=== PATIENT | male | born 1945 | race Caucasian/White ===

== ENCOUNTER → 2018-10-15 | Outpatient (CLI) | payer MEDICARE ==
--- NOTE | 2018-10-15 11:16 | US ---
EXAMINATION TYPE: US duplex aorta DATE OF EXAM: 10/15/2018 COMPARISON: CT 2011 CLINICAL HISTORY: Z13.6 Screening cardiovascular disorder. Screening, pt has no complaints at this t jordan EXAM MEASUREMENTS: Abdominal Aorta: Proximal: 1.9 x 2.3 cm Mid: 1.8 x 1.8 cm Distal: 1.6 x 1.6 cm Bifurcation: LEONILA: 1.1 x 1.1 cm RUBY: 1.3 x 1.1 cm No evidence of AAA IMPRESSION: No sonographic evidence of abdominal aortic aneurysm in the visualized portions of the ab dominal aorta.
== END | disposition home or self-care (01) ==
LOC: RADUSWWP 09:43
PROVIDERS: ATTEND Family Medicine
DX: Z13.6 Encounter for screening for cardiovascular disorders (principal)
CPT/HCPCS: 93979

== ENCOUNTER → 2022-05-17 | Outpatient (CLI) | payer MEDICARE ==
--- NOTE | 2022-05-18 04:51 | MR ---
EXAMINATION TYPE: MR shoulder RT wo con DATE OF EXAM: 05/17/2022 COMPARISON: None. HISTORY: Right shoulder pain and limited range of motion. History of surgery. TECHNIQUE: Multiplanar, multisequence imaging of the right shoulder is performed without contrast. FINDINGS: Rotator Cuff: Increased signal in the supraspinatus and infraspinatus tendons with surrounding fluid. Rotator cuff muscle bulk is maintained. Acromioclavicular Joint: Moderate to severe narrowing and moderate capsular hypertrophy. Mild to mode rate spurring. Glenohumeral Joint: Small to moderate size joint effusion. Moderate narrowing. There is spur from the inferior medial humeral head coronal image 15. Labrum: The superior labrum is blunted suggesting tear. Biceps Tendon: The long head of biceps is not well identified in normal location. Labral anchor not s een suspected torn Bone marrow signal: There is linear artifact in the superior anterior femoral head presumably from pr ior rotator cuff tear. Subchondral cystic change at the acromioclavicular joint. Other: No additional significant abnormality is appreciated. IMPRESSION: 1. Evidence of prior rotator cuff surgery. There is tendinosis and partial tearing of the surgically repaired supraspinatus and infraspinatus tendons. 2. Long head of biceps labral anchor not well visualized, tear is strongly suspected. 3. Degenerative changes as detailed above.
== END | disposition home or self-care (01) ==
LOC: RADMRIMAIN 08:45
PROVIDERS: ATTEND Family Medicine
DX: M75.111 Incomplete rotator cuff tear or rupture of right shoulder, not specified as traumatic (principal); M19.011 Primary osteoarthritis, right shoulder; M24.811 Other specific joint derangements of right shoulder, not elsewhere classified

== ENCOUNTER → 2024-05-15 | Outpatient (CLI) | payer MEDICARE ==
[2024-05-15 12:17] LABS: African American GFR (CKD) 82 (>60 ml/min/1.73 sqM); Blood Urea Nitrogen 21 mg/dL (9-20); Non-African American GFR(CKD) 71 (>60 ml/min/1.73 sqM)
--- NOTE | 2024-05-15 13:34 | CT ---
EXAMINATION TYPE: CT abdomen pelvis w con CT DLP: 544.8 mGycm, Automated exposure control for dose reduction was used. DATE OF EXAM: 05/15/2024 1:12 PM COMPARISON: Ultrasound duplex aorta 10/15/2018, CT abdomen 11/14/2011 CLINICAL INDICATION:Male, 79 years old with history of R31.29 OTHER MICROSCOPIC HEMATURIA; MICRO ROSA TURIA TECHNIQUE: Standard CT of the abdomen and pelvis following the administration of 100 cc of Isovue 3 00 IV contrast material and oral contrast. Coronal and sagittal reformats were performed. FINDINGS: LOWER CHEST: Unremarkable ABDOMEN LIVER: Right hepatic lobe 1.4 cm cyst. GALLBLADDER AND BILE DUCTS: Unremarkable. PANCREAS: Unremarkable. SPLEEN: Unremarkable. ADRENAL GLANDS: Unremarkable. KIDNEYS AND URETERS: No evidence of hydronephrosis or renal calculus. The kidneys enhance symmetrical ly without suspicious focal lesion. PELVIS BLADDER: Left anterior lateral urinary bladder wall broad-based thickening measuring up to 9 mm (seri es 3, 76). There is some mild surrounding fat stranding at this region. REPRODUCTIVE: Prostate is prominent in size measuring 4.9 cm in transverse dimension. ABDOMEN & PELVIS STOMACH AND BOWEL: Small hiatal hernia, duodenum is unremarkable. Distal colonic diverticulosis witho ut evidence for acute diverticulitis. Enteric contrast reaches the ascending colon. No focal bowel wa ll thickening or surrounding inflammatory changes. No evidence of bowel obstruction. PERITONEUM: No evidence of pneumoperitoneum or free fluid. VASCULATURE: Mild atherosclerotic calcifications are present throughout the abdominal aorta and its b ranches. No evidence of aortic aneurysm. MUSCULOSKELETAL: No acute osseous abnormalities. Multilevel degenerative disc disease of the visualiz ed spine. No aggressive osseous lesion. LYMPH NODES: No evidence for lymphadenopathy. SOFT TISSUE/ABDOMINAL WALL: Small fat filled left inguinal hernia. IMPRESSION: 1. Eccentric anterior lateral urinary bladder wall thickening with some surrounding fat stranding. F indings may relate to cystitis however underlying neoplasm is not excluded. Correlation with urinalys is and consideration for direct visualization is recommended. 2. Colonic diverticulosis without evidence for acute diverticulitis. [facility], , 05/15/2024 1:31 PM
== END | disposition home or self-care (01) ==
LOC: RADCTMAIN 11:07
PROVIDERS: ATTEND Family Medicine
DX: K57.30 Diverticulosis of large intestine without perforation or abscess without bleeding (principal); R31.29 Other microscopic hematuria; K40.90 Unilateral inguinal hernia, without obstruction or gangrene, not specified as recurrent; I70.0 Atherosclerosis of aorta
CPT/HCPCS: 82565; 84520; 74177; 36415; Q9967

== ENCOUNTER 2024-12-17 15:22 | Observation (INO) | payer MEDICARE ==
--- NOTE | 2024-12-17 15:48 | ED ---
Chest Pain HPI - General Chief Complaint: Chest Pain Stated Complaint: Chest pain Time Seen by Provider: 12/17/24 15:33 Source: patient, RN notes reviewed, old records reviewed Mode of arrival: ambulatory Limitations: no limitations - History of Present Illness Initial Comments: This is a 79-year-old male presenting with occasional chest pain chest pain and dyspnea. Exertional dyspnea going on now for a few days. Pending standing but she did have some inhalation issues and then since that is a difficulty breathing especially with exertion. He does have history of heart disease with positive stent no history of asthma or COPD MD Complaint: chest pain -: days(s) Onset: during rest, during exertion Pain Location: substernal, left chest Pain Radiation: back Severity: moderate Severity scale (1-10): 4 Quality: tightness Consistency: intermittent Improves With: nothing Worsens With: exertion Anginal Symptoms: dyspnea, sense of impending doom Other Symptoms: palpitations Treatments Prior to Arrival: none - Related Data Home Medications Medication Instructions Recorded Confirmed Aspirin EC [Ecotrin Low Dose] 81 mg PO DAILY 12/17/24 12/17/24 Celecoxib [CeleBREX] 200 mg PO BID 12/17/24 12/17/24 Co Q-10(Unknown Dose) 1 tab PO DAILY 12/17/24 12/17/24 Fish Oil(Unknown Dose) 1 cap PO DAILY 12/17/24 12/17/24 Glucosamine/Chondr Flynn A Sod [Osteo 1 tab PO DAILY 12/17/24 12/17/24 Bi-Flex Caplet] Levocetirizine Dihydrochloride 5 mg PO DAILY 12/17/24 12/17/24 [Xyzal] Multivit/Iron Sulf/Folic Acid 1 tab PO DAILY 12/17/24 12/17/24 [Multivitamin with Iron] Rosuvastatin [Crestor] 20 mg PO DAILY 12/17/24 12/17/24 Saw/Vit E/Sod Raisa/Lyc/Beta/Pyg 1 tab PO DAILY 12/17/24 12/17/24 [Prostate Health Caplet] Tamsulosin [Flomax] 0.4 mg PO HS 12/17/24 12/17/24 Vitamin D3 50mcg-K1 500mcg-Mk4 1 cap PO DAILY 12/17/24 12/17/24 1500mcg-Mk7 180mcg Capsule tiZANidine [Zanaflex] 4 mg PO HS 12/17/24 12/17/24 Allergies Allergy/AdvReac Type Severity Reaction Status Date / Time No Known Allergies Allergy Verified 12/17/24 20:36 Review of Systems ROS Statement: Those systems with pertinent positive or pertinent negative responses have been documented in the HPI. ROS Other: All systems not noted in ROS Statement are negative. EKG Findings - EKG Comments: EKG Findings:: EKG is Sinus 64 MI 173 QRS 101 QTc 447 - EKG Results: EKG: interpreted by REBECCA Past Medical History Past Medical History: No Reported History History of Any Multi-Drug Resistant Organisms: None Reported Additional Past Surgical History / Comment(s): cardiac stent Past Psychological History: No Psychological Hx Reported Smoking Status: Never smoker Past Alcohol Use History: Rare Past Drug Use History: None Reported General Exam Limitations: no limitations General appearance: alert, in no apparent distress Head exam: Present: atraumatic, normocephalic, normal inspection Eye exam: Present: normal appearance, PERRL, EOMI. Absent: scleral icterus, conjunctival injection, periorbital swelling ENT exam: Present: normal exam, mucous membranes moist Neck exam: Present: normal inspection. Absent: tenderness, meningismus, lymphadenopathy Respiratory exam: Present: normal lung sounds bilaterally. Absent: respiratory distress, wheezes, rales, rhonchi, stridor Cardiovascular Exam: Present: regular rate, normal rhythm, normal heart sounds. Absent: systolic murmur, diastolic murmur, rubs, gallop, clicks GI/Abdominal exam: Present: soft, normal bowel sounds. Absent: distended, tenderness, guarding, rebound, rigid Extremities exam: Present: normal inspection, full ROM, normal capillary refill. Absent: tenderness, pedal edema, joint swelling, calf tenderness Back exam: Present: normal inspection Neurological exam: Present: alert, oriented X3, CN II-XII intact Psychiatric exam: Present: normal affect, normal mood Skin exam: Present: warm, dry, intact, normal color. Absent: rash Course Vital Signs 12/17/24 12/17/24 12/17/24 15:24 16:00 17:00 Temperature 98.0 F Pulse Rate 70 63 52 L Respiratory 15 20 19 Rate Blood Pressure 166/78 146/91 149/83 O2 Sat by Pulse 99 98 97 Oximetry 12/17/24 12/17/2412/17/25 17:34 17:43 18:00 Temperature Pulse Rate 54 L 58 L 60 Respiratory 17 Rate Blood Pressure 145/78 O2 Sat by Pulse 97 Oximetry 12/17/24 12/17/24 12/18/24 19:58 21:52 00:02 Temperature Pulse Rate 67 75 73 Respiratory 18 16 18 Rate Blood Pressure 166/90 156/99 156/84 O2 Sat by Pulse 95 95 95 Oximetry - Reevaluation(s) Reevaluation #1: 12/17/24 16:24 Medical records reviewed Reevaluation #2: Patient still with chest pain and palpitations here in the ER Reevaluation #3: Patient formed results questions answered Reevaluation #4: Was pt. sent in by a medical professional or institution (RAQUEL Sheridan, PHYTOPATHOLOGIST, urgent care, hospital, or fpc...) When possible be specific @ -no Did you speak to anyone other than the patient for history (EMS, parent, family, police, friend...)? What history was obtained from this source @ -no Did you review nursing and triage notes (agree or disagree)? Why? @ -agree Are old charts reviewed (outside hosp., previous admission, EMS record, old EKG, old radiological studies, urgent care reports/EKG's, fpc records)? Report findings @ -yes Differential Diagnosis (chest pain, altered mental status, abdominal pain women, abdominal pain men, vaginal bleeding, weakness, fever, dyspnea, syncope, headache, dizziness, GI bleed, back pain, seizure, CVA, palpatations, mental health, musculoskeletal)? @ -prior EKG interpreted by me (3pts min.). @ -yes X-rays interpreted by me (1pt min.). @ -yes negative for acute disease CT interpreted by me (1pt min.). @ -no U/S interpreted by me (1pt. min.). @ -no What testing was considered but not performed or refused? (CT, X-rays, U/S, labs)? Why? @ -none What meds were considered but not given or refused? Why? @ -none Did you discuss the management of the patient with other professionals (professionals i.e. RAQUEL Sheridan, PHYTOPATHOLOGIST, lab, RT, psych nurse, oncology social work, traffic warehouse supervisor, teacher, administrative services officer, case making machine operator)? Give summary @ -no Was smoking cessation discussed for >3mins.? @ -no Was critical care preformed (if so, how long)? @ -no Were there social determinants of health that impacted care today? How? (Homelessness, low income, unemployed, alcoholism, drug addiction, transportation, low edu. Level, literacy, decrease access to med. care, fci, rehab)? @ -none Was there de-escalation of care discussed even if they declined (Discuss DNR or withdrawal of care, Hospice)? DNR status @ -no What co-morbidities impacted this encounter? (DM, HTN, Smoking, COPD, CAD, Cancer, CVA, ARF, Chemo, Hep., AIDS, mental health diagnosis, sleep apnea, morbid obesity)? @ -none Was patient admitted / discharged? Hospital course, mention meds given and route, prescriptions, significant lab abnormalities, going to OR and other pertinent info. @ - 79 male presenting with chest pain and palpitations patient to be admitted for cardiac observation. Admitted Undiagnosed new problem with uncertain prognosis? @ -no Drug Therapy requiring intensive monitoring for toxicity (Heparin, Nitro, Insulin, Cardizem)? @ -no Were any procedures done? @ -no Diagnosis/symptom? @ -Chest pain or palpitations Acute, or Chronic, or Acute on Chronic? @ -Acute Uncomplicated (without systemic symptoms) or Complicated (systemic symptoms)? @ -Complicated Side effects of treatment? @ -no Exacerbation, Progression, or Severe Exacerbation? @ -exacerbation Poses a threat to life or bodily function? How? (Chest pain, [place], [place], pneumonia, PE, COPD, DKA, ARF, appy, cholecystitis, CVA, Diverticulitis, Homicidal, Suicidal, threat to staff... and all critical care pts) @ -yes with chest pain Reevaluation #5: Differential Dyspnea: Coronary syndrome, arrhythmia, tamponade, asthma, COPD, pulmonary embolism, pneumonia, pneumothorax, pulmonary effusion, anaphylaxis, diabetic ketoacidosis, flailed chest, pulmonary contusion, diaphragmatic rupture, anemia, neuromuscular, this is not meant to be an all-inclusive list. Differential Chest Pain: Stable Angina, Unstable Angina, STEMI, NSTEMI Aortic Dissection, Pneumothorax, Musculoskeletal, Esophageal Spasm GERD, Cholecystitis, Pancreatitis, Zoster, this is not meant to be an all-inclusive list. - Consultations Consultation #1: Spoke with admitting physicians agreed to admit this patient Chest Pain MDM - MDM 79 male presenting with chest pain and palpitations patient to be admitted for cardiac observation. Critical Care Time Critical Care Time: Yes Total Critical Care Time: 31 Disposition Clinical Impression: Chest pain, Palpitations Disposition: ADMITTED IP TO THIS HOSP Condition: Fair Is patient prescribed a controlled substance at d/c from ED?: No Time of Disposition: 19:00
[2024-12-17 15:50] LABS: Basophils # (A) 0.05 10*3/uL (0.00-0.10); Basophils % (A) 0.7 %; Eosinophils # (A) 0.25 10*3/uL (0.04-0.35); Eosinophils % (A) 3.6 %; HCT 42.0 % (39.6-50.0); HGB 14.6 g/dL (13.0-17.0); Lymphocytes # (A) 1.17 10*3/uL (0.90-5.00); Lymphocytes % (A) 16.7 %; MCH 33.0 pg (27.0-32.0); MCHC 34.8 g/dL (32.0-37.0); MCV 94.8 fL (80.0-97.0); Monocytes # (A) 0.57 10*3/uL (0.20-1.00); Monocytes % (A) 8.2 %; Neutrophils # (A) 4.90 10*3/uL (1.80-7.70); Neutrophils % (A) 70.1 %; Platelet Count 150 10*3/uL (140-440); RBC 4.43 10*6/uL (4.40-5.60); RDW 12.4 % (11.5-14.5); WBC 6.99 10*3/uL (4.50-10.00)
[2024-12-17 16:08] LABS: INR 0.9 (<1.2); Partial Thromboplastin Time 23.0 sec (22.0-30.0); Prothrombin Time 10.3 sec (10.0-12.5)
[2024-12-17 16:10] LABS: ALT 31 U/L (4-49); AST 40 U/L (17-59); African American GFR (CKD) >90 (>60 ml/min/1.73 sqM); Albumin 4.1 g/dL (3.5-5.0); Alkaline Phosphatase 84 U/L (38-126); Anion Gap 9 mmol/L; Blood Urea Nitrogen 17 mg/dL (9-20); Calcium 9.2 mg/dL (8.4-10.2); Carbon Dioxide 23 mmol/L (22-30); Chloride 108 mmol/L (98-107); Glucose 107 mg/dL (74-99); Lipase 72 U/L (23-300); Magnesium 2.5 mg/dL (1.6-2.3); Non-African American GFR(CKD) 82 (>60 ml/min/1.73 sqM); Potassium 4.4 mmol/L (3.5-5.1); Sodium 140 mmol/L (137-145); Total Protein 6.5 g/dL (6.3-8.2)
--- NOTE | 2024-12-17 16:12 | XR ---
EXAMINATION TYPE: XR chest 2V DATE OF EXAM: 12/17/2024 3:54 PM COMPARISON: None. CLINICAL INDICATION: Male, 79 years old with history of Chest Pain, TECHNIQUE: XR chest 2V view(s) obtained. FINDINGS: The heart size is normal. The pulmonary vasculature is normal. The lungs are clear. IMPRESSION: 1. No acute pulmonary process. [facility], Workstation: [facility], 12/17/2024 4:09 PM
[2024-12-17 16:20] LABS: NT-Pro-B-Type Natriuretic Pept 147 pg/mL
[2024-12-17] MEDS: DEXAMETHASONE SOD PHOSPHATE 10 MG/ML 1 ML VIAL IVP STA (17:14)
[2024-12-17] MEDS: IPRATROPIUM-ALBUTEROL 3 ML NEB INHALATION STA (17:34)
[2024-12-17] MEDS ORDERED: MORPHINE SULFATE 4 MG/ML SYRINGE IV PRN (18:58)
[2024-12-17] MEDS ORDERED: NALOXONE 0.4 MG/ML 1 ML VIAL IV PRN (18:58)
[2024-12-17] MEDS ORDERED: ONDANSETRON 4 MG/2 ML VIAL IVP PRN (18:58)
[2024-12-17] MEDS: SODIUM CHLORIDE 0.9% 1,000 ML IV SCH (19:55)
[2024-12-18 00:33] VITALS: RESP 16
[2024-12-18 06:38] LABS: Basophils # (A) 0.02 10*3/uL (0.00-0.10); Basophils % (A) 0.2 %; Eosinophils # (A) 0.00 10*3/uL (0.04-0.35); Eosinophils % (A) 0.0 %; HCT 43.7 % (39.6-50.0); HGB 14.4 g/dL (13.0-17.0); Lymphocytes # (A) 0.59 10*3/uL (0.90-5.00); Lymphocytes % (A) 5.2 %; MCH 31.9 pg (27.0-32.0); MCHC 33.0 g/dL (32.0-37.0); MCV 96.7 fL (80.0-97.0); Monocytes # (A) 0.24 10*3/uL (0.20-1.00); Monocytes % (A) 2.1 %; Neutrophils # (A) 10.44 10*3/uL (1.80-7.70); Neutrophils % (A) 91.8 %; Platelet Count 173 10*3/uL (140-440); RBC 4.52 10*6/uL (4.40-5.60); RDW 12.3 % (11.5-14.5); WBC 11.37 10*3/uL (4.50-10.00)
[2024-12-18 06:56] LABS: ALT 27 U/L (4-49); AST 33 U/L (17-59); African American GFR (CKD) >90 (>60 ml/min/1.73 sqM); Albumin 3.9 g/dL (3.5-5.0); Alkaline Phosphatase 63 U/L (38-126); Anion Gap 9 mmol/L; Blood Urea Nitrogen 17 mg/dL (9-20); Calcium 9.1 mg/dL (8.4-10.2); Carbon Dioxide 21 mmol/L (22-30); Chloride 110 mmol/L (98-107); Glucose 201 mg/dL (74-99); Magnesium 2.3 mg/dL (1.6-2.3); Non-African American GFR(CKD) 84 (>60 ml/min/1.73 sqM); Potassium 4.4 mmol/L (3.5-5.1); Sodium 140 mmol/L (137-145); Total Protein 6.2 g/dL (6.3-8.2)
--- NOTE | 2024-12-18 09:52 | P.CRDCN ---
History of Present Illness Consult date: 12/18/24 Consult reason: chest pain History of present illness: This is a 79-year-old male with past medical history of coronary artery disease with previous stent in 2003, hyperlipidemia. 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 He denies history of hypertension. No history of diabetes, stroke or cancers. We have been asked to evaluate the patient for chest pain. Patient presented to the emergency center due to chest pain and exertional dyspnea. He states his symptoms have been going on for the past 3 days. He states he has dyspnea on exertion and is hard to catch his breath when he stops to sit down. He also feels that his heart is pounding. He states he has had episodes similar to this in the past but not recently. For the past 3 days he has been doing yard work when he has the symptoms. He denies any chest pain at this time. Blood pressure 154/80, heart rate 70, pulse ox 97% on room air. Patient is status post nebulizer treatment and Decadron IV. Patient denies history of tobacco use. He states he drinks alcohol rarely. -EKG: Sinus rhythm with no acute ST-T wave changes. -Chest x-ray: No acute process. -Laboratory studies: WBC 6.9, hemoglobin 14.6, BUN 17, creatinine 0.83, potassium 4.4. Troponin negative x 4. -Home cardiac medications: Aspirin 81 mg daily, rosuvastatin 20 mg daily, also o n co-Q10 and fish oil. Review Of Systems: At the time of my exam: CONSTITUTIONAL: Denies fever or chills. HEENT: Denies blurred vision, vision changes, or eye pain. Denies hemoptysis CARDIOVASCULAR: Denies chest pain. Denies orthopnea. Denies PND. Denies palpitations RESPIRATORY: Denies shortness of breath. GASTROINTESTINAL: Denies abdominal pain. Denies nausea or vomiting. HEMATOLOGIC: Denies bleeding disorders. GENITOURINARY: Denies any blood in urine. SKIN: Denies puritis. Denies rash. Physical examination: Gen: This is 79-year-old male in no acute distress. VS: reviewed HEENT: Head is atraumatic, normocephalic. Pupils equal, round. Sclerae is anicteric. NECK: Supple. No JVD. LUNGS: Clear to auscultation. No wheezes or rhonchi. No intercostal retractions. HEART: Regular rate and rhythm. No murmur. ABDOMEN: Soft No tenderness. EXTREMITIES: No pedal edema. No calf tenderness. NEUROLOGICAL: Patient is awake, alert and oriented x3. Assessment: Atypical chest pain, acute coronary syndrome ruled out Hypertension Hyperlipidemia History of coronary artery disease with previous stent, details unknown Plan: Resume patient's home cardiac medications Obtain Cardiolite stress test today N.p.o. until stress test is completed Obtain 2-D echocardiogram and Doppler study to assess cardiac structure and function If echocardiogram and stress test are unremarkable, patient is cleared from cardiology for discharge and may follow-up in the office with Dr. Verdugo in 1 week. Thank you kindly for this consultation. Nurse practitioner note has been reviewed, I agree with documented findings and plan of care. Patient was seen and examined. Past Medical History Past Medical History: No Reported History, Hyperlipidemia, Prostate Disorder History of Any Multi-Drug Resistant Organisms: None Reported Past Surgical History: Bladder Surgery, Heart Catheterization With Stent Additional Past Surgical History / Comment(s): cardiac stent Date of Last Stent Placement:: 2003 Past Psychological History: No Psychological Hx Reported Smoking Status: Former smoker Past Alcohol Use History: Rare Past Drug Use History: None Reported Medications and Allergies Home Medications Medication Instructions Recorded Confirmed Type Aspirin EC [Ecotrin Low Dose] 81 mg PO DAILY 12/17/24 12/17/24 History Celecoxib [CeleBREX] 200 mg PO BID 12/17/24 12/17/24 History Co Q-10(Unknown Dose) 1 tab PO DAILY 12/17/24 12/17/24 History Fish Oil(Unknown Dose) 1 cap PO DAILY 12/17/24 12/17/24 History Glucosamine/Chondr Flynn A Sod [Osteo 1 tab PO DAILY 12/17/24 12/17/24 History Bi-Flex Caplet] Levocetirizine Dihydrochloride 5 mg PO DAILY 12/17/24 12/17/24 History [Xyzal] Multivit/Iron Sulf/Folic Acid 1 tab PO DAILY 12/17/24 12/17/24 History [Multivitamin with Iron] Rosuvastatin [Crestor] 20 mg PO DAILY 12/17/24 12/17/24 History Saw/Vit E/Sod Raisa/Lyc/Beta/Pyg 1 tab PO DAILY 12/17/24 12/17/24 History [Prostate Health Caplet] Tamsulosin [Flomax] 0.4 mg PO HS 12/17/24 12/17/24 History Vitamin D3 50mcg-K1 500mcg-Mk4 1 cap PO DAILY 12/17/24 12/17/24 History 1500mcg-Mk7 180mcg Capsule tiZANidine [Zanaflex] 4 mg PO HS 12/17/24 12/17/24 History Allergies Allergy/AdvReac Type Severity Reaction Status Date / Time No Known Allergies Allergy Verified 12/17/24 20:36 Physical Exam Vitals: Vital Signs Temp Pulse Pulse Resp BP BP Pulse Ox 12/18/24 00:29 98.1 F 70 16 154/80 97 12/18/24 00:02 73 18 156/84 95 12/17/24 21:52 75 16 156/99 95 12/17/24 19:58 67 18 166/90 95 12/17/24 18:00 60 17 145/78 97 12/17/24 17:43 58 L 12/17/24 17:34 54 L 12/17/24 17:00 52 L 19 149/83 97 12/17/24 16:00 63 20 146/91 98 12/17/24 15:24 98.0 F 70 15 166/78 99 Intake and Output 12/17/24 12/18/24 12/18/24 22:59 06:59 14:59 Other: Voiding Method Toilet # Voids 1 Weight 74.389 kg 74.389 kg Results 12/18/24 05:31 12/18/24 05:31 Cardiac Enzymes 12/17/24 12/17/24 12/17/24 Range/Units 15:45 15:45 17:45 AST 40 (17-59) U/L Troponin I 0.015 0.017 (0.000-0.034) ng/mL 12/17/24 12/18/24 12/18/24 Range/Units 20:25 00:42 05:31 AST 33 (17-59) U/L Troponin I 0.015 0.013 (0.000-0.034) ng/mL Coagulation 12/17/24 Range/Units 15:45 PT 10.3 (10.0-12.5) sec APTT 23.0 (22.0-30.0) sec CBC 12/17/24 12/18/24 Range/Units 15:45 05:31 WBC 6.99 11.37 H (4.50-10.00) 10*3/uL RBC 4.43 4.52 (4.40-5.60) 10*6/uL Hgb 14.6 14.4 (13.0-17.0) g/dL Hct 42.0 43.7 (39.6-50.0) % Plt Count 150 173 (140-440) 10*3/uL Comprehensive Metabolic Panel 12/17/24 12/18/24 Range/Units 15:45 05:31 Sodium 140 140 (137-145) mmol/L Potassium 4.4 4.4 (3.5-5.1) mmol/L Chloride 108 H 110 H (98-107) mmol/L Carbon Dioxide 23 21 L (22-30) mmol/L BUN 17 17 (9-20) mg/dL Creatinine 0.89 0.83 (0.66-1.25) mg/dL Glucose 107 H 201 H (74-99) mg/dL Calcium 9.2 9.1 (8.4-10.2) mg/dL AST 40 33 (17-59) U/L ALT 31 27 (4-49) U/L Alkaline Phosphatase 84 63 (38-126) U/L Total Protein 6.5 6.2 L (6.3-8.2) g/dL Albumin 4.1 3.9 (3.5-5.0) g/dL Current Medications Generic Name Dose Route Start Last Admin Trade Name Freq PRN Reason Stop Dose Admin Sodium Chloride 1,000 mls @ 75 mls/hr 12/17/24 19:00 12/17/24 19:55 Saline 0.9% IV 75 mls/hr .[id number] MORALES Administration Morphine Sulfate 4 mg 12/17/24 18:58 Morphine Sulfate 4 Mg/Ml Syringe IV Q4HR PRN Severe Pain (Scale 7 to 10) Naloxone HCl 0.2 mg 12/17/24 18:58 Naloxone 0.4 Mg/Ml 1 Ml Vial IV Q2M PRN Opioid Reversal Ondansetron HCl 4 mg 12/17/24 18:58 Ondansetron 4 Mg/2 Ml Vial IVP Q8HR PRN Nausea And Vomiting Intake and Output 12/17/24 12/18/24 12/18/24 22:59 06:59 14:59 Other: Voiding Method Toilet # Voids 1 Weight 74.389 kg 74.389 kg 12/18/24 05:31 12/18/24 05:31
[2024-12-18] MEDS: ASPIRIN 81 MG PO SCH (11:39)
[2024-12-18] MEDS: ATORVASTATIN 40 MG TAB PO SCH (11:39)
--- NOTE | 2024-12-18 13:53 | CA ---
Transthoracic Echo Report Name: Gordon Huitron Age: 79 Gender: M : 1945 Exam Date: 12/18/2024 07:22 Exam Location: [place] [facility] Ht (in): 69 Wt (lb): 164 Ordering Physician: Arvin Cabrera DO Attending/Referring Phys: [id number], Deborah Loom Changeover Operator Sandra Andrew RDCS Procedure CPT: Indications: ACS Cardiac Hx: Technical Quality: Good Contrast 1: Total Dose (mL): Contrast 2: Total Dose (mL): MEASUREMENTS (Male / Female) Normal Values 2D ECHO LV Diastolic Diameter PLAX 4.6 cm 4.2 - 5.9 / 3.9 - 5.3 cm LV Systolic Diameter PLAX 2.2 cm IVS Diastolic Thickness 1.1 cm 0.6 - 1.0 / 0.6 - 0.9 cm LVPW Diastolic Thickness 1.1 cm 0.6 - 1.0 / 0.6 - 0.9 cm LV Relative Wall Thickness 0.5 RV Internal Dim ED PLAX 2.4 cm LA Systolic Diameter LX 3.4 cm 3.0 - 4.0 / 2.7 - 3.8 cm LV Diastolic Volume MOD BP 58.4 cm??? 67 - 155 / 56 - 104 cm??? LV Systolic Volume MOD BP 19.1 cm??? 22 - 58 / 19 - 49 cm??? LV Ejection Fraction MOD BP 67.3 % >= 55 % LV Cardiac Index MOD BP 1357.8 cm???/min???m??? LV Diastolic Volume MOD 4C 58.5 cm??? LV Systolic Volume MOD 4C 24.5 cm??? LV Ejection Fraction MOD 4C 58.1 % LV Cardiac Index MOD 4C 1175.8 cm???/min???m??? LV Diastolic Length 4C 8.0 cm LV Systolic Length 4C 6.4 cm LV Diastolic Volume MOD 2C 55.2 cm??? LV Systolic Volume MOD 2C 14.3 cm??? LV Ejection Fraction MOD 2C 74.2 % LV Cardiac Index MOD 2C 1416.7 cm???/min???m??? LV Diastolic Length 2C 7.5 cm LV Systolic Length 2C 6.1 cm LA Volume 52.3 cm??? 18 - 58 / 22 - 52 cm??? LA Volume Index 27.4 cm???/m??? 16 - 28 cm???/m??? M-MODE Aortic Root Diameter MM 3.6 cm LA Systolic Diameter MM 3.8 cm LA Ao Ratio MM 1.0 AV Cusp Separation MM 2.1 cm DOPPLER AV Peak Velocity 148.1 cm/s AV Peak Gradient 8.8 mmHg AI Peak Velocity 310.9 cm/s AI Peak Gradient 38.7 mmHg AI Pressure Half Time 990.2 ms MV Area PHT 2.5 cm??? Mitral E Point Velocity 58.3 cm/s Mitral A Point Velocity 70.7 cm/s Mitral E to A Ratio 0.8 MV Deceleration Time 305.8 ms FINDINGS Left Ventricle Left ventricular ejection fraction is estimated at 55-60%. Normal left ventricular systolic function with no obvious regional wall motion abnormalities. Left ventricular cavity size normal. Left ventricular wall thickness normal. Right Ventricle Normal right ventricular size and function. Right ventricular systolic pressure within normal limits. Right Atrium Normal right atrial size. Left Atrium Normal left atrial size. Mitral Valve Structurally normal mitral valve. Trace mitral regurgitation. No mitral stenosis. Aortic Valve Trileaflet aortic valve. Mild aortic regurgitation. No aortic stenosis. Tricuspid Valve Structurally normal tricuspid valve. Mild tricuspid regurgitation. No tricuspid stenosis. Pulmonic Valve Structurally normal pulmonic valve. No pulmonic stenosis. Trace pulmonic regurgitation. Pericardium No pericardial or pleural effusion. Aorta Normal size aortic root and proximal ascending aorta. CONCLUSIONS LVEF 55 to 60% No obvious regional wall motion abnormality Normal RV size and systolic function Mild aortic regurgitation Mild tricuspid regurgitation Previewed by: Dr Abisai Verdugo (Electronically Signed) Final Date: 18 December 2024 09:45
--- NOTE | 2024-12-18 13:53 | CA ---
Exercise Nuclear Stress Test Report Name: Gordon Huitron Exam Date: 12/18/2024 10:44 Exam Location: [facility] Ht (in): 69 Wt (lb): 164 BSA: 1.90 Ordering Phys: Candis Cabrera Referring Phys: CANDIS CABRERA Technologist: ELMA BACH Age: 79 Gender: M : 1945 Procedure CPT: Indications: Reflex order-Stress test, Unstable angina ICD-10 Codes: I200 Patient History: CHEST PAIN, DIFFICULTY IN BREATHING, HYPERCHOLESTEROLEMIA, PRIOR SMOKER, PRIOR CATH WITH STENT Medications: SEE CHART,,, Meds past 24 hrs: Pretest Chest Pain: STRESS TEST Ulises Protocol Exercise Duration (min:sec): 06:[address] Depressions (mm): Angina Score: Michael Score: Resting HR (bpm): 67 Peak HR (bpm): 127 Resting BP (mmHg): 151 / 84 Peak BP (mmHg): 171 / 79 MPHR: 142 Target HR: 121 % MPHR: 89 METS: 7.1 Total Dose: Peak Dose: Atropine: Double Product: 63859 BP Response: Stress Termination: TARGET HR REACHED/MAX EXERTION Stress Symptoms: NO SYMPTOMS Stress Summary: ECG ANALYSIS Resting ECG: Sinus rhythm. Stress ECG: No ECG evidence of ischemia with exercise. Atrial premature contraction seens CONCLUSIONS Fair exercise tolerance for age achieving 7.1 METS Nonischemic ECG response to treadmill exercise Normal hemodynamic and clinical response to treadmill exercise Please refer to the nuclear portion of the imaging for the complete interpretation of the study Dr Abisai Verdugo (Electronically Signed) Final Date: 18 December 2024 12:57
--- NOTE | 2024-12-18 15:38 | P.HPIM ---
History of Present Illness H&P Date: 12/18/24 Chief Complaint: Chest pain with exertional dyspnea History of present illness; 79-year-old male with past medical history of coronary artery disease with previous stenting 2003 and hyperlipidemia presents with complaints of acute onset shortness of breath and chest tightness. Patient reports 3 episodes of exertional shortness of breath for the past 3 days. He reports doing yard work and experiencing sudden need to "catch his breath" with associated chest tightness resulting in him to sit down and rest. chest pain he also reports new onset chest palpitations. Denies orthopnea, cough, nausea, vomiting, fevers, and recent sick contacts. In the ED lab work indicates troponin 0.015, WBC 11. 37, hemoglobin 14.4, sodium 140, potassium 4.4, glucose 201, phosphorus 2. Chest x-ray obtained rules out any acute pulmonary process. An EKG obtained indicates sinus rhythm with no acute STT wave changes. REVIEW OF SYSTEMS: As stated above in HPI. The rest of the 14-point review of systems is negative. PHYSICAL EXAMINATION: GENERAL: The patient is alert and oriented x3, not in any acute distress. Well developed, well nourished. HEENT: Pupils are round and equally reacting to light. EOMI. No scleral icterus. No conjunctival pallor. Normocephalic, atraumatic. CARDIOVASCULAR: S1 and S2 present. PULMONARY: Chest is clear to auscultation b/l, no wheezing or crackles. ABDOMEN: Soft, nontender, nondistended, normoactive bowel sounds. No palpable organomegaly. MUSCULOSKELETAL: No joint swelling or deformity. EXTREMITIES: No cyanosis, clubbing, or pedal edema. NEUROLOGICAL: Gross neurological examination did not reveal any focal deficits. SKIN: No rashes. Assessment and Plan #Atypical chest pain, to rule out acute coronary syndrome #Hyperlipidemia - Continue atorvastatin. N.p.o. till stress test completed Pending echo Cardiology on consult, appreciate recommendations CODE STATUS: Full Dictation was produced using [employer] dictation software. please excuse any grammatical, word or spelling errors. Past Medical History Past Medical History: No Reported History, Hyperlipidemia, Prostate Disorder History of Any Multi-Drug Resistant Organisms: None Reported Past Surgical History: Bladder Surgery, Heart Catheterization With Stent Additional Past Surgical History / Comment(s): cardiac stent Date of Last Stent Placement:: 2003 Past Psychological History: No Psychological Hx Reported Smoking Status: Former smoker Past Alcohol Use History: Rare Past Drug Use History: None Reported Medications and Allergies Home Medications Medication Instructions Recorded Confirmed Type Aspirin EC [Ecotrin Low Dose] 81 mg PO DAILY 12/17/24 12/17/24 History Celecoxib [CeleBREX] 200 mg PO BID 12/17/24 12/17/24 History Co Q-10(Unknown Dose) 1 tab PO DAILY 12/17/24 12/17/24 History Fish Oil(Unknown Dose) 1 cap PO DAILY 12/17/24 12/17/24 History Glucosamine/Chondr Flynn A Sod [Osteo 1 tab PO DAILY 12/17/24 12/17/24 History Bi-Flex Caplet] Levocetirizine Dihydrochloride 5 mg PO DAILY 12/17/24 12/17/24 History [Xyzal] Multivit/Iron Sulf/Folic Acid 1 tab PO DAILY 12/17/24 12/17/24 History [Multivitamin with Iron] Rosuvastatin [Crestor] 20 mg PO DAILY 12/17/24 12/17/24 History Saw/Vit E/Sod Raisa/Lyc/Beta/Pyg 1 tab PO DAILY 12/17/24 12/17/24 History [Prostate Health Caplet] Tamsulosin [Flomax] 0.4 mg PO HS 12/17/24 12/17/24 History Vitamin D3 50mcg-K1 500mcg-Mk4 1 cap PO DAILY 12/17/24 12/17/24 History 1500mcg-Mk7 180mcg Capsule tiZANidine [Zanaflex] 4 mg PO HS 12/17/24 12/17/24 History Allergies Allergy/AdvReac Type Severity Reaction Status Date / Time No Known Allergies Allergy Verified 12/17/24 20:36 Physical Exam Vitals: Vital Signs Temp Pulse Pulse Resp BP BP Pulse Ox 12/18/24 07:38 97.8 F 63 16 141/73 12/18/24 00:29 98.1 F 70 16 154/80 97 12/18/24 00:02 73 18 156/84 95 12/17/24 21:52 75 16 156/99 95 12/17/24 19:58 67 18 166/90 95 12/17/24 18:00 60 17 145/78 97 12/17/24 17:43 58 L 12/17/24 17:34 54 L 12/17/24 17:00 52 L 19 149/83 97 12/17/24 16:00 63 20 146/91 98 12/17/24 15:24 98.0 F 70 15 166/78 99 Intake and Output 12/17/24 12/18/24 12/18/24 22:59 06:59 14:59 Other: Voiding Method Toilet Toilet # Voids 1 Weight 74.389 kg 74.389 kg Results CBC & Chem 7: 12/18/24 05:31 12/18/24 05:31 Labs: Abnormal Lab Results - Last 24 Hours (Table) 12/17/24 12/17/24 12/18/24 Range/Units 15:45 15:45 05:31 WBC 11.37 H (4.50-10.00) 10*3/uL MCH 33.0 H (27.0-32.0) pg Immature Gran # 0.05 H 0.08 H (0.00-0.04) 10*3/uL Neutrophils # 10.44 H (1.80-7.70) 10*3/uL Lymphocytes # 0.59 L (0.90-5.00) 10*3/uL Eosinophils # 0.00 L (0.04-0.35) 10*3/uL Chloride 108 H (98-107) mmol/L Carbon Dioxide (22-30) mmol/L Glucose 107 H (74-99) mg/dL Phosphorus (2.5-4.5) mg/dL Magnesium 2.5 H (1.6-2.3) mg/dL Total Protein (6.3-8.2) g/dL 12/18/24 Range/Units 05:31 WBC (4.50-10.00) 10*3/uL MCH (27.0-32.0) pg Immature Gran # (0.00-0.04) 10*3/uL Neutrophils # (1.80-7.70) 10*3/uL Lymphocytes # (0.90-5.00) 10*3/uL Eosinophils # (0.04-0.35) 10*3/uL Chloride 110 H (98-107) mmol/L Carbon Dioxide 21 L (22-30) mmol/L Glucose 201 H (74-99) mg/dL Phosphorus 2.0 L (2.5-4.5) mg/dL Magnesium (1.6-2.3) mg/dL Total Protein 6.2 L (6.3-8.2) g/dL Thrombosis Risk Factor Assmnt - Choose All That Apply Each Risk Factor Represents 3 Points: Age 75 years or older Thrombosis Risk Factor Assessment Total Risk Factor Score: 3 Thrombosis Risk Factor Assessment Level: Moderate Risk Assessment and Plan Assessment: Attestation Attestation/ Secretary Specialist Note: Attestation to History and physical, Participation (I saw and evaluated the patient with the Resident, and I reviewed and discussed the patient with the Resident and agree with the Resident's findings and plans as documented above., management reviewed and discussed), I agree with findings & plan, Provider Signature (PRATIK MOTA, FRANCISCO Aiken
--- NOTE | 2024-12-18 15:39 | P.DS ---
Providers Date of admission: 12/17/24 19:04 Expected date of discharge: 12/18/24 Attending physician: Azeem Harper Consults: 12/17/24 18:58 Consult Physician Routine Consulting Provider: Mehdi Mcneil Consult Reason/Comments: cp Do you want consulting provider notified?: Yes Primary care physician: Faisal Broussard Hospital Course: Discharge Diagnosis: #Atypical chest pain acute coronary syndrome # Exertional dyspnea Hospital Course: 79-year-old male with past medical history of coronary artery disease with previous stenting 2003 and hyperlipidemia presents with complaints of acute onset shortness of breath and chest tightness. Patient reports 3 episodes of exertional shortness of breath for the past 3 days. He reports doing yard work and experiencing sudden need to "catch his breath" with associated chest tightness resulting in him to sit down and rest. chest pain he also reports new onset chest palpitations. Denies orthopnea, cough, nausea, vomiting, fevers, an d recent sick contacts. In the ED lab work indicates troponin 0.015, WBC 11.37, hemoglobin 14.4, sodium 140, potassium 4.4, glucose 201, phosphorus 2. Chest x- ray obtained rules out any acute pulmonary process. An EKG obtained indicates sinus rhythm with no acute STT wave changes. During the course of the hospital stay, patient evaluated by cardiology. An echocardiogram and Doppler study performed significant for LVEF of 55 to 60%, with mild aortic regurgitation and tricuspid regurgitation. Furthermore, patient underwent a cardiac exercise stress test, was within normal limits. At time of discharge, patient symptoms have resolved. Patient currently hemodynamically stable for discharge home. Patient to follow-up with cardiology and PCP in 1 week's time. Patient seen and examined at bedside. 12/18/2024 Vital signs reviewed and stable. Gen: This is 79-year-old male in no acute distress. HEENT: Head is atraumatic, normocephalic. Pupils equal, round. Sclerae is anicteric. NECK: Supple. No JVD. LUNGS: Clear to auscultation. No wheezes or rhonchi. No intercostal retractions. HEART: Regular rate and rhythm. No murmur. ABDOMEN: Soft No tenderness. EXTREMITIES: No pedal edema. No calf tenderness. NEUROLOGICAL: Patient is awake, alert and oriented x3. A total of greater than 30 minutes of time were spent preparing this complex discharge summary. Patient was discharged on 12/18/2024. Attestation Attestation/ Kettle Cleaner Note: Attestation to D/C Summary, Participation (I saw and evaluated the patient with the Resident, and I reviewed and discussed the patient with the Resident and agree with the Resident's findings and plans as documented above., immediately available, management reviewed and discussed), I agree with findings & plan, Provider Signature (PRATIK MOTA, FRANCISCO Aiken Patient Condition at Discharge: Fair Plan - Discharge Summary Discharge Rx Participant: No New Discharge Prescriptions: Continue tiZANidine [Zanaflex] 4 mg PO HS Multivit/Iron Sulf/Folic Acid [Multivitamin with Iron] 1 tab PO DAILY Levocetirizine Dihydrochloride [Xyzal] 5 mg PO DAILY Co Q-10(Unknown Dose) 1 tab PO DAILY Tamsulosin [Flomax] 0.4 mg PO HS Saw/Vit E/Sod Raisa/Lyc/Beta/Pyg [Prostate Health Caplet] 1 tab PO DAILY Rosuvastatin [Crestor] 20 mg PO DAILY Glucosamine/Chondr Flynn A Sod [Osteo Bi-Flex Caplet] 1 tab PO DAILY Celecoxib [CeleBREX] 200 mg PO BID Aspirin EC [Ecotrin Low Dose] 81 mg PO DAILY Vitamin D3 50mcg-K1 500mcg-Mk4 1500mcg-Mk7 180mcg Capsule 1 cap PO DAILY Fish Oil(Unknown Dose) 1 cap PO DAILY Discharge Medication List Aspirin EC [Ecotrin Low Dose] 81 mg PO DAILY 12/17/24 [History] Celecoxib [CeleBREX] 200 mg PO BID 12/17/24 [History] Co Q-10(Unknown Dose) 1 tab PO DAILY 12/17/24 [History] Fish Oil(Unknown Dose) 1 cap PO DAILY 12/17/24 [History] Glucosamine/Chondr Flynn A Sod [Osteo Bi-Flex Caplet] 1 tab PO DAILY 12/17/24 [History] Levocetirizine Dihydrochloride [Xyzal] 5 mg PO DAILY 12/17/24 [History] Multivit/Iron Sulf/Folic Acid [Multivitamin with Iron] 1 tab PO DAILY 12/17/24 [History] Rosuvastatin [Crestor] 20 mg PO DAILY 12/17/24 [History] Saw/Vit E/Sod Raisa/Lyc/Beta/Pyg [Prostate Health Caplet] 1 tab PO DAILY 12/17/24 [History] Tamsulosin [Flomax] 0.4 mg PO HS 12/17/24 [History] Vitamin D3 50mcg-K1 500mcg-Mk4 1500mcg-Mk7 180mcg Capsule 1 cap PO DAILY 12/17/24 [History] tiZANidine [Zanaflex] 4 mg PO HS 12/17/24 [History] Follow up Appointment(s)/Referral(s): Faisal Broussard MD [Primary Care Provider] - 1-2 days Abisai Verdugo MD [Medical Doctor] - 1 Week (office will call with follow up appointment date and time) Patient Instructions/Handouts: Dyspnea (DC) Discharge Disposition: HOME SELF-CARE
[2024-12-18 16:31] VITALS: BP 116/63; PULSE 73; TEMP 98
--- NOTE | 2024-12-18 23:05 | NM ---
EXAMINATION TYPE: NM stress cardiolite complete DATE OF EXAM: 12/18/2024 COMPARISON: NONE CLINICAL INDICATION: Male, 79 years old with history of chest pain, TECHNIQUE: After the intravenous administration of 9.4 mCi Tc 99m Sestamibi - Cardiolite resting SPE CT images acquired 50 minutes post injection. At peak stress 25.4 mCi Tc 99m Sestamibi - Stress images obtained 20 minutes post injection The patient was stressed with 0.4mg Lexiscan. FINDINGS: There is a small fixed defect near the cardiac apex distal septal wall. No reversible stress defects on Spect images. Wall motion is normal. Ejection fraction is calculated to be 68 %. IMPRESSION: 1. Small fixed defect along the distal septal wall near the cardiac apex may be a prior infarct. [facility], , 12/18/2024 11:03 PM
== END 2024-12-18 16:08 | disposition home or self-care (01) ==
LOC: EC 15:22 → 6NMEDSUR 19:04
PROVIDERS: ADMIT Hospitalist; ATTEND Hospitalist
DX: R07.89 Other chest pain (principal); R00.2 Palpitations; I25.10 Atherosclerotic heart disease of native coronary artery without angina pectoris; I08.2 Rheumatic disorders of both aortic and tricuspid valves; I10 Essential (primary) hypertension; E78.5 Hyperlipidemia, unspecified; M54.9 Dorsalgia, unspecified; Z79.82 Long term (current) use of aspirin; Z79.1 Long term (current) use of non-steroidal anti-inflammatories (NSAID); Z79.899 Other long term (current) drug therapy; Z87.891 Personal history of nicotine dependence; Z95.5 Presence of coronary angioplasty implant and graft
CPT/HCPCS: 96361 ×2; 96374; 99291; 36415; 94640; 93005; 93017; 93306; 83880; 80053 ×2; 83690; 83735 ×2; 84100; 84484 ×2; 85025 ×2; 85610; 85730; 71046; 78452; G0378 ×2; A9500; J1100; 99285